=== PATIENT | female | born 2000 | race Caucasian/White ===

== ENCOUNTER 2019-10-26 06:20 | Inpatient (IN) | payer OTHER ==
[~2019-10-26] VITALS: Ht 160 cm; Wt 72.6 kg
[2019-10-26] MEDS ORDERED: LACTATED RINGERS 1,000 ML IV SCH (07:39)
[2019-10-26] MEDS ORDERED: OXYTOCIN 10 UNITS/ML VIAL IM SCH (07:40)
[2019-10-26] MEDS ORDERED: NALBUPHINE 10 MG/ML AMP IVP PRN (07:40)
[2019-10-26] MEDS ORDERED: CARBOPROST 250 MCG/ML AMP IM PRN (07:40)
[2019-10-26] MEDS ORDERED: METHYLERGONOVINE 0.2 MG/ML AMP IM PRN (07:40)
[2019-10-26] MEDS ORDERED: AMPICILLIN 2,000 MG in NACL 0.9% MINI-BAG PLUS 100 ML IV SCH (07:40)
[2019-10-26] MEDS ORDERED: PROMETHAZINE 25 MG/ML VIAL IVP PRN (07:40)
[2019-10-26] MEDS ORDERED: NALBUPHINE 10 MG/ML AMP ONE (07:59)
[2019-10-26] MEDS ORDERED: PROMETHAZINE 25 MG/ML VIAL ONE (08:00)
[2019-10-26] MEDS ORDERED: LIDOCAINE 1% 500 MG/50 ML VIAL ONE (08:01)
[2019-10-26 09:02] LABS: BASOPHILS % (AUTO) 0.3 % (0.0-2.0); EOSINOPHILS % (AUTO) 0.4 % (0.0-4.0); HEMATOCRIT 33.2 % (36-48); HEMOGLOBIN 11.1 g/dL (12.0-16.0); LYMPHOCYTES # (AUTO) 0.9 K/uL (2.5-16.5); LYMPHOCYTES % (AUTO) 12.4 % (20.5-51.1); MEAN CORPUSCULAR HEMOGLOBIN 30 pg (27-31); MEAN CORPUSCULAR HGB CONC 34 g/dL (33-37); MEAN CORPUSCULAR VOLUME 89.2 fL (80-94); MONOCYTES # (AUTO) 0.5 K/uL (0.8-1.0); MONOCYTES % (AUTO) 6.7 % (1.7-9.3); NEUTROPHILS # (AUTO) 5.8 K/uL (1.8-7.7); NEUTROPHILS % (AUTO) 80.2 % (42.2-75.2); PLATELET COUNT (AUTO) 155 K/uL (140-450); RED BLOOD CELL COUNT(AUTO) 3.73 MIL/uL (4.20-5.40); RED CELL DISTRIBUTION WIDTH 15.5 % (11.6-13.7); WHITE BLOOD COUNT (AUTO) 7.2 K/uL (4.8-10.8)
[2019-10-26 09:08] LABS: BILIRUBIN,URINE NEGATIVE (NEGATIVE); COLOR,URINE YELLOW (YELLOW); LEUKOCYTE ESTERASE ,URINE 1+ (NEGATIVE); NITRITE, URINE NEGATIVE (NEGATIVE); PH,URINE 8.5 (5.0-9.0); UGLUCOSE NEGATIVE (NEGATIVE)
[2019-10-26 09:14] LABS: BARBITURATE, URINE NEG. ng/ml (NEG <=200); BENZODIAZEPINE, URINE NEG. ng/mL (NEG <=200); CANNABINOID, URINE NEG. ng/mL (NEG <=50); COCAINE, URINE NEG. ng/mL (NEG <=300); OPIATE, URINE NEG. ng/mL (NEG <=2000); PHENCYCLIDINE SCREEN,URINE NEG. ng/mL (NEG <=25)
[2019-10-26 09:17] LABS: APPEARANCE,URINE SLIGHTLY HAZY (CLEAR); BLOOD, URINE 1+ (NEGATIVE); RBC,URINE 0-5 /HPF (0-5)
[2019-10-26 09:18] LABS: ALBUMIN 2.9 g/dL (3.4-5.0); ANION GAP 15.8 (8-16); CREATININE 0.4 mg/dL (0.6-1.3); POTASSIUM 3.8 mmol/L (3.5-5.1); TOTAL BILIRUBIN 0.3 mg/dL (0.0-1.0)
[2019-10-26] MEDS ORDERED: AMPICILLIN 2,000 MG VIAL ONE (09:24)
[2019-10-26] MEDS ORDERED: OXYTOCIN 20 UNITS/LR PREMIX 1,000 ML IV ONE (09:25)
[2019-10-26] MEDS ORDERED: OXYTOCIN 20 UNITS in LACTATED RINGERS 1,000 ML IV SCH (10:26)
[2019-10-26] MEDS ORDERED: IBUPROFEN 600 MG TAB PO PRN (10:30)
[2019-10-26] MEDS ORDERED: MEASLES, MUMPS, AND RUBELLA 1 VIAL SQVAC PRN (10:30)
[2019-10-26] MEDS ORDERED: BISACODYL 5 MG TABEC PO PRN (10:30)
[2019-10-26] MEDS ORDERED: ACETAMINOPHEN 325 MG TAB PO PRN (10:30)
[2019-10-26] MEDS ORDERED: DOCUSATE SODIUM 100 MG GELCAP PO PRN (10:30)
[2019-10-26] MEDS ORDERED: AMPICILLIN 1,000 MG in NACL 0.9% MINI-BAG PLUS 50 ML IV SCH (12:00)
[2019-10-26] MEDS ORDERED: LIDOCAINE MPF 1% 10 MG/ML VIAL INJ SCH (19:10)
[2019-10-27 08:46] LABS: BASOPHILS % (AUTO) 0.3 % (0.0-2.0); EOSINOPHILS # (AUTO) 0.1 K/uL (0-0.4); EOSINOPHILS % (AUTO) 0.7 % (0.0-4.0); HEMOGLOBIN 12.1 g/dL (12.0-16.0); LYMPHOCYTES # (AUTO) 1.4 K/uL (2.5-16.5); MEAN CORPUSCULAR HEMOGLOBIN 29 pg (27-31); MEAN CORPUSCULAR HGB CONC 33 g/dL (33-37); MONOCYTES # (AUTO) 0.5 K/uL (0.8-1.0); MONOCYTES % (AUTO) 6.3 % (1.7-9.3); NEUTROPHILS # (AUTO) 6.4 K/uL (1.8-7.7); NEUTROPHILS % (AUTO) 75.7 % (42.2-75.2); PLATELET COUNT (AUTO) 163 K/uL (140-450); RED BLOOD CELL COUNT(AUTO) 4.11 MIL/uL (4.20-5.40); RED CELL DISTRIBUTION WIDTH 15.4 % (11.6-13.7); WHITE BLOOD COUNT (AUTO) 8.4 K/uL (4.8-10.8)
--- NOTE | 2019-10-27 08:56 | NUR ---
PATIENT HAS BEEN SCREENED AND CATEGORIZED LOW NUTRITION RISK. PATIENT WILL BE SEEN WITHIN 7 DAYS OF ADMISSION. 11/01/[address]
== END 2019-10-28 15:00 | disposition home or self-care (01) | DRG 807 ==
LOC: MLD 06:20 → MFCC 13:05
PROVIDERS: ADMIT Obstetrics & Gynecology; ATTEND Obstetrics & Gynecology
PROC: 10E0XZZ Delivery of Products of Conception, External Approach (ICD-10-PCS; principal; 2019-10-26)
PROC: 10907ZC Drainage of Amniotic Fluid, Therapeutic from Products of Conception, Via Natural or Artificial Opening (ICD-10-PCS; 2019-10-26)
DX: O80 Encounter for full-term uncomplicated delivery (principal); Z37.0 Single live birth; Z3A.40 40 weeks gestation of pregnancy
CPT/HCPCS: 36415; 51702; 59409; 76805; 80053; 80305; 81001; 85025; 86592; 86762; 86886; 86900; 86901; 87086; 87340; 87653-90; J0290; J2001; J2300; J2550; J2590; J7120; Q0092